=== PATIENT | female | born 1980 | race Caucasian/White ===

== ENCOUNTER → 2018-07-05 12:32 | Outpatient (CLI) | payer OTHER, SELFPAY | LOC: MTRAD 12:36 | PROVIDERS: Family Provider Family Medicine; PCP Family Medicine; Visit Provider Family Medicine | DX: S69.92XA Unspecified injury of left wrist, hand and finger(s), initial encounter (principal) | CPT/HCPCS: 73140 ==

== ENCOUNTER → 2021-06-16 14:23 | Outpatient (CLI) | payer BC, SELFPAY ==
--- NOTE | 2021-06-16 14:28 | RAD_ITS ---
STUDY: X-RAY CHEST REASON FOR EXAM: Female, 40 years old. CHEST PAIN TECHNIQUE: PA and lateral views of the chest. COMPARISON: None. FINDINGS: The lungs are clear and expanded. There is no demonstrated pleural abnormality. Normal size heart. Normal mediastinum and tatiana. Normal visualized pulmonary arteries. Normal visualized aortic arch and descending thoracic aorta. There are mild degenerative changes of the visualized thoracic spine. Normal visualized ribs, clavicles, and shoulders. There is no demonstrated abnormality of the visualized soft tissue structures of the upper abdomen. RAD/Chest PA and Lateral IMPRESSION: Normal x-ray examination of the chest. Electronically Signed: Vinny Jackson MD at 22:04 EDT , Service support ,
[2021-06-16 17:40] LABS: Absolute Lymphocyte Count 1.91 X10^3/uL (0.83-4.51); Absolute Neutrophil Count 5.8 X10^3/uL (2.0-7.7); Basophil# 0.05 X10^3/uL; Basophil% 0.6 % (0-1); Eosinophil# 0.07 X10^3/uL; Eosinophils% 0.8 % (0-5); Hematocrit 44.2 % (37-47); Hemoglobin 14.9 g/dL (12.0-15.0); Lymphocyte # 1.91 X10^3/ul (0.83-4.51); Mean Corp Hgb Conc 33.7 g/dL (32-36); Mean Corpuscular Hgb 28.5 pg (27.0-32.0); Mean Corpuscular Volume 84.7 fL (81-99); Mean Platelet Vol. 11.6 fl (6.2-12.0); Monocyte# 0.45 X10^3/uL; Monocyte% 5.4 % (0-10); NRBC Flagged by Analyzer 0 % (0-5); Neutrophil % 69.8 % (47-70); Platelet Count 215 K/mm3 (150-450); RBC Distribution Width CV 11.8 % (11.6-14.6); RBC Distribution Width SD 35.9 fl (35.1-43.9); Red Blood Count 5.22 M/mm3 (4.2-5.4); White Blood Count 8.3 K/mm3 (4.4-11.0)
[2021-06-16 18:01] LABS: Vitamin D,25 Hydroxy 34.3 ng/mL
[2021-06-16 18:10] LABS: ALB/GLOB Ratio 1.3 RATIO (0.9-2.4); AST(SGOT) 15 U/L (15-37); Alanine Aminotransfer ALT/SGPT 28 U/L (13-56); Albumin, Serum 4.2 g/dL (3.2-5.0); Alkaline Phosphatase 60 U/L (45-117); Anion Gap 7 (5-15); BUN 9 mg/dL (7-18); BUN/Creat Ratio 10.6 RATIO (10-20); CRP < 2.90 mg/L (0.0-3.0); Chloride 105 mmol/L (98-107); Creatinine, Serum 0.85 mg/dL (0.55-1.02); EST Glomerular Filtration Rate 78 mL/min (>60); Est Glom Filt Rate - Afr Amer 94 mL/min (>60); Globulin 3.3 g/dL (2.2-4.2); Glucose 92 mg/dL (74-106); Potassium 3.5 mmol/L (3.5-5.1); Protein, Total 7.5 g/dL (6.4-8.2); Sodium Level 138 mmol/L (136-145)
[2021-06-18 16:11] LABS: ANTINUCLEAR ANTIBODIES DIRECT Negative (Negative)
== END ==
LOC: MTLAB 14:26
PROVIDERS: PCP Family Medicine; Referring Provider Family Medicine; Visit Provider Family Medicine
DX: R07.9 Chest pain, unspecified (principal); M25.50 Pain in unspecified joint
CPT/HCPCS: 36415; 71046; 80053; 82306; 85025; 86038; 86140; 86225; 86235

== ENCOUNTER → 2022-06-01 | Outpatient (CLI) | payer BC, SELFPAY ==
[2022-06-01 10:45] LABS: ALB/GLOB Ratio 1.2 RATIO (0.9-2.4); AST(SGOT) 16 U/L (15-37); Alanine Aminotransfer ALT/SGPT 22 U/L (13-56); Albumin, Serum 3.8 g/dL (3.2-5.0); Alkaline Phosphatase 62 U/L (45-117); Anion Gap 4 (5-15); BUN 8 mg/dL (7-18); BUN/Creat Ratio 9.2 RATIO (10-20); Chloride 106 mmol/L (98-107); Cholesterol 177 mg/dL (200); Creatinine, Serum 0.87 mg/dL (0.55-1.02); EST Glomerular Filtration Rate 75 mL/min (>60); Est Glom Filt Rate - Afr Amer 91 mL/min (>60); Globulin 3.1 g/dL (2.2-4.2); Glucose 82 mg/dL (74-106); High Density Lipoprotein 51 mg/dL; Potassium 3.8 mmol/L (3.5-5.1); Protein, Total 6.9 g/dL (6.4-8.2); Sodium Level 138 mmol/L (136-145); Triglycerides 65 mg/dL; Very Low Density Lipoprotein 13 mg/dL (5-40)
== END | disposition home or self-care (01) ==
PROVIDERS: PCP Family Medicine; Referring Provider Nurse Practitioner Family; Visit Provider Nurse Practitioner Family
DX: Z13.1 Encounter for screening for diabetes mellitus (principal); Z13.220 Encounter for screening for lipoid disorders
CPT/HCPCS: 36415; 80053; 80061

== ENCOUNTER → 2023-05-25 | Outpatient (CLI) | payer BC, SELFPAY ==
[2023-05-25 11:06] LABS: Cholesterol 184 mg/dL (200); Glucose 95 mg/dL (74-106); High Density Lipoprotein 48 mg/dL; Triglycerides 74 mg/dL; Very Low Density Lipoprotein 15 mg/dL (5-40)
== END | disposition home or self-care (01) ==
PROVIDERS: PCP Family Medicine; Referring Provider Family Medicine; Visit Provider Family Medicine
DX: Z00.00 Encounter for general adult medical examination without abnormal findings (principal); Z13.220 Encounter for screening for lipoid disorders; E66.9 Obesity, unspecified; Z68.31 Body mass index [BMI] 31.0-31.9, adult
CPT/HCPCS: 36415; 80061; 82947

== ENCOUNTER → 2024-05-20 | Outpatient (CLI) | payer BC, SELFPAY ==
[2024-05-20 10:36] LABS: Alanine Aminotransfer ALT/SGPT 27 U/L (13-56); Cholesterol 193 mg/dL (200); Creatinine, Serum 0.84 mg/dL (0.55-1.02); EST Glomerular Filtration Rate 77 mL/min (>60); Est Glom Filt Rate - Afr Amer 94 mL/min (>60); Glucose 95 mg/dL (74-106); High Density Lipoprotein 46 mg/dL; Thyroid Stim Hormone (TSH) 1.93 uIU/mL (0.358-3.74); Triglycerides 108 mg/dL; Very Low Density Lipoprotein 22 mg/dL (5-40)
== END | disposition home or self-care (01) ==
LOC: MFPLAB 09:32
PROVIDERS: PCP Family Medicine; Visit Provider Family Medicine
DX: Z13.220 Encounter for screening for lipoid disorders (principal); F41.1 Generalized anxiety disorder
CPT/HCPCS: 36415; 80061; 82565; 82947; 84443; 84460

== ENCOUNTER → 2025-05-26 | Outpatient (CLI) | payer BC, SELFPAY ==
[2025-05-26 18:52] LABS: AST(SGOT) 20 U/L (<=31); Alanine Aminotransfer ALT/SGPT 17 U/L (<=34); Albumin, Serum 4.1 g/dL (3.5-5.0); Alkaline Phosphatase 66 U/L (35-104); Anion Gap 11 (5-15); BUN 9 mg/dL (4-19); BUN/Creat Ratio 10.4 RATIO (10-20); Calcium,Total 9.0 mg/dL (7.6-11.0); Carbon Dioxide 21.5 mmol/L (21.0-32.0); Chloride 107 mmol/L (98-108); Cholesterol 189 mg/dL (<=200); Globulin 2.6 g/dL (2.2-4.2); Glucose 85 mg/dL (70-99); Low Density Lipoprotein Calc. 128 mg/dL; Potassium 3.8 mmol/L (3.3-5.1); Triglycerides 94 mg/dL; Very Low Density Lipoprotein 19 mg/dL (5-40); cholesterol:hdl ratio screen 4.52
== END | disposition home or self-care (01) ==
LOC: MFPLAB 16:05
PROVIDERS: PCP Family Medicine; Referring Provider Family Medicine; Visit Provider Family Medicine
DX: Z00.00 Encounter for general adult medical examination without abnormal findings (principal); F41.1 Generalized anxiety disorder; Z13.220 Encounter for screening for lipoid disorders; Z00.8 Encounter for other general examination
CPT/HCPCS: 36415; 80053; 80061; 83036